=== PATIENT | female | born 1965 | race Two or more races ===

== ENCOUNTER 2025-09-17 09:33 | Outpatient (AMB) | payer MEDICARE, MEDICAID, SELFPAY ==
--- NOTE | 2025-09-17 10:04 | MHC.OFFVIS ---
Vital Signs 09/17/25 10:17 Height 5 ft 4 in Weight 168 lb BMI 28.8 BP 132/70 Blood Pressure Location Rt brachial Position Sitting Pulse 72 Pulse Source Pulse Oximeter Pulse Oximetry (%) 98 Oxygen Delivery Method Room Air Intake Visit Reasons: CHRONIC RT SIDED LOW BACK PAIN Intake Note: Pain today 05/26 Broiler Supervisor Required: Yes Broiler Supervisor Language: Chief Hydroelectric Station Operator Name: Breann # [id number] Accompanied by: Self / Same As Patient Allergies aspirin Allergy (Unknown, Verified 09/17/25 10:31) Rash HPI Comments Details: The patient is a 59 year old Setswana speaking female presenting with chronic back pain. The patient has had low back pain for approximately four years, which radiates to the right lower extremity with intermittent tingling and numbness. The patient also reports chronic neck pain without radiculopathy, as well as bilateral hip pain. For symptoms, the patient takes Tylenol, applies diclofenac gel topically, and takes Flexeril at night. Past treatments include injections for back pain received at a pain clinic in [place]. The patient has not had back surgery. Past medical history is significant for a cervical herniated disc, cervical degenerative joint disease, and lumbar joint disease. The patient also sees a Psychiatrist for anxiety and depression. The patient was referred from physical therapy and recently had an evaluation but has not started treatment. The patient also reports undergoing recent x-rays due to sciatica pain. - Onset: The patient has had back pain for approximately four years. - Location: The patient reports chronic low back pain with radiation to the right lower extremity, as well as chronic neck pain and bilateral hip pain. - Quality: The pain is associated with intermittent tingling and numbness in the hands and legs. - Exacerbating factors: Bending backward is more painful, and a little increase in pain was noted with this movement. - Analgesia: The patient is currently taking Tylenol, using diclofenac gel topically, and taking Flexeril at night. - Affect: The patient sees a psychiatrist for anxiety and depression. - Activities of Daily living: The patient is requesting a letter for housing assistance, indicating a potential impact on living situation. [facility] Medical History Osteoarthritis of left knee Tension headache Allergic rhinitis Hypothyroidism Spondylosis of cervical region without myelopathy or radiculopathy Chronic right-sided low back pain with right-sided sciatica Gastritis, Helicobacter pylori Depression Anxiety Asthma exacerbation, mild Chronic GERD without esophagitis Surgical History H/O tubal ligation History of breast biopsy Social History Alcohol intake: unknown Patient Tobacco Use Status: Never used Tobacco Review of Systems Const Details: - Musculoskeletal: Reports chronic low back pain for approximately 4 years, chronic neck pain, and bilateral hip pain. - Neurological: Reports pain radiating to the right lower extremity, and numbness and tingling in the hands and legs all the time. All systems reviewed & are unremarkable except as noted in HPI and below Physical Exam Vital Signs: Last Vital Signs Pulse 72 09/17/25 10:17 BP 132/70 09/17/25 10:17 Pulse Ox 98 09/17/25 10:17 Oxygen Delivery Method Room Air 09/17/25 10:17 BMI result Body Mass Index 28.8 General: Appears afebrile. Alert and oriented. Mood and affect appropriate. Follows and participates in conversation appropriately. Respiratory effort is unlabored. No cough. Able to transition from sit to stand unassisted. No assistive devices. Ambulates with normal heel strike and toe off on the left, reports back and right leg increase with toe/heel standing. General: Yes no CVA tenderness Back/Spine/Pelvis Other: Limited lumbar ROM due to pain. Lumbar flexion reproduces mild pain, lumbar extension reproduces moderate to severe pain. Demonstrates 5/5 strength of quadriceps bilaterally as well as flexion/dorsiflexion of bilateral feet against resistance. 2+ pedal pulses bilaterally. Straight leg rise with dorsiflexion positive on the right. +2 patellar and +1 achilles reflexes bilaterally. Facet loading test positive bilaterally. Matti?s, Pelvic compression and Stinchfield tests are positive bilaterally. No groin pain with I/E hip rotations. Valsalva maneuver negative. Back: no CVA tenderness Cervical Spine: cervical ROM normal, cervical muscular tenderness, pain with cervical ROM, Cervical spine scars present and No Cervical spine tenderness Thoracic/Lumbar Spine: thoracic and lumbar spine normal to inspection, No Thoracic/lumbar spine scar(s), Lasegue's sign positive (L4-L5 distribution) on the right and localized, pain with thoraco-lumbar ROM, paraspinal muscle tenderness, thoraco-lumbar ROM limited, No thoracic spinal tenderness and lumbar spinal tenderness (L4-S1) Pelvis: buttock tenderness on the right Sacroiliac joints: bilaterally tender to palpation Extrem General: Yes capillary refill normal, Yes no clubbing, cyanosis or edema and Yes no calf tenderness Results Reviewed Results Reviewed: Assessment & Plan Assessment & Plan (1) Lumbar radiculopathy: Code(s): M54.16 - Radiculopathy, lumbar region Category: Medical (2) Lumbar degenerative disc disease: Code(s): M51.369 - Other intervertebral disc degeneration, lumbar region without mention of lumbar back pain or lower extremity pain Category: Medical (3) Lumbosacral spondylosis: Code(s): M47.817 - Spondylosis without myelopathy or radiculopathy, lumbosacral region Category: Medical (4) Cervical spondylosis: Code(s): M47.812 - Spondylosis without myelopathy or radiculopathy, cervical region Category: Medical Plan An MRI will be ordered to evaluate the right-sided leg pain to assess neural integrity and compression, especially at L4-L5 level. The patient is advised to continue with physical therapy as referred. For pain management, the patient was prescribed a 5-day Medrol pack and lidocaine patches to be used up to 12 hours a day on the back. Side effects and precautions were discussed with patient. All questions and concerns have been answered and patient agreed with the treatment plan. Follow up for MRI results and sooner as needed. Patient was informed and verbally consented to the use of an ambient scribe for clinic note documentation during this visit. Orders: Orders MR lumbar spine wo con 09/17/25 M47.817 - Spondylosis without myelopathy or radiculopathy, lumbosacral region, M51.369 - Other intervertebral disc degeneration, lumbar region without mention of lumbar back pain or lower extremity pain, M54.16 - Radiculopathy, lumbar region Medications: New methylprednisolone (Medrol (Yaw)) PO PER PKG DIR 21 ea 0RF pain M47.817 - Spondylosis without myelopathy or radiculopathy, lumbosacral region, M51.369 - Other intervertebral disc degeneration, lumbar region without mention of lumbar back pain or lower extremity pain, M54.16 - Radiculopathy, lumbar region lidocaine 5% leave on most painful area for up to 12 hrs topical 30 ea 0RF pain 30 days M47.817 - Spondylosis without myelopathy or radiculopathy, lumbosacral region, M51.369 - Other intervertebral disc degeneration, lumbar region without mention of lumbar back pain or lower extremity pain, M54.16 - Radiculopathy, lumbar region Coding Level of Care Code New Pt Level 4 (49781) Diagnoses Lumbar radiculopathy M54.16 Lumbar degenerative disc disease M51.369 Lumbosacral spondylosis M47.817 Cervical spondylosis M47.812
[2025-09-17 10:17] VITALS: BP 132/70; PULSE 72; O2SAT 98; BMI 28.8
--- OUTSIDE RECORDS SUMMARY | 2025-09-17 10:21 | XMS_ITS | Encounter Summary ---
Author Organization [facility] Address [address] [place] [address] Care Team Providers Care Rectifier Operator Name Role Phone Yosvany Brennan MD Primary Care Provider Encounter Details Date Type Department Care Team ([facility] Contact Info) Description 08/20/2025 Results Follow-Up Adult Medicine [address] [phone] Yosvany Brennan MD [address] [place] [address] Social History Tobacco Use Types Packs/Day Years Used Date Smoking Tobacco: Never Smokeless Tobacco: Never Alcohol Use Standard Drinks/Week Comments Never 0 (1 standard drink = 0.6 oz pur e alcohol) Comments Unknown Sex and Gender Information Value Date Recorded Sex Assigned at Not on file Legal Sex Female 8:43 PM EST Gender Identity Not on file Sexual Orientation Not on file documented as of this encounter Plan of Treatment Upcoming Encounters Date Type Department Care Team (Late Contact Info) Description 10/16/2025 10:00 AM EST Consult Adult Medicine [address] [phone] Yosvany Brennan MD [address] [place] [address] 11/21/2025 9:00 AM EST Office Visit Adult Medicine [address] [place], [place] [phone] Yosvany Brennan MD [address] [place] [address] documented as of this encounter Visit Diagnoses Not on filedocumented in this encounter Care Teams Rectifier Operator Relationship Specialty Start Date End Date Yosvany Brennan MD [address] [place] [address] PCP - General Internal Medicine 08/19/25 documented as of this encounter
--- OUTSIDE RECORDS SUMMARY | 2025-09-17 10:21 | XMS_ITS | Encounter Summary ---
Author Organization [facility] Address [address] [place] [address] Care Team Providers Care Labour Market Economist Name Role Phone Yosvany Brennan MD Primary Care Provider [phone] Encounter Details Date Type Department Care Team (Late st Contact Info) Description 09/16/2025 Telephone Adult Medicine [facility] [address] [place], [place] [phone] Yosvany Brennan MD [address] [place], [place] Social History Tobacco Use Types Packs/Day Years [...] on file documented as of this encounter Progress Notes * Daniel Harrison MA - 09/17/2025 10:09 AM EST Patient is requesting letter for housing stating she needs an apartment for disable elder. Letter needs to include medical conditions and medication list. Please advise. * Yoli Avitia - 09/16/2025 10:24 AM EST Pt needs letter for housing stating what her medical conditions are and what medications she is taking. Letter needs to state she needs and apartment for disabled elder. documented in this encounter Plan of Treatment Upcoming Encounters Date Type Department Care Team (Late st Contact Info) Description 10/16/2025 10:00 AM EST Consult Adult Medicine [address] [phone] Yosvany Brennan MD [address] [place] [address] 11/21/2025 9:00 AM EST Office Visit Adult Medicine [address] [phone] Yosvany Brennan MD [address] [place] [address] documented as of this encounter Goals Goal Patient Goal Type Associated Problems Recent Progress Patient-Stated? Author STG's 6 visits General Yes Jerad Alston, PT Note: Pt will report a 1-2 point decrease in neck pain during light household IADL's. Pt will demonstrate a 5 degree or better improvement in cerv ext and cerv lat flexion. Pt will demonstrate DNFET of 20 seconds or better. Pt is Independent and compliant with initial HEP. LTG's 12 visits General Yes Jerad Alston, PT Note: Pt will report a 2 point or better decrease in neck pain during light household IADL's. Pt will demonstrate a 10 degree or better improvement in cerv ext and cerv lat flexion. Pt will demonstrate DNFET of 28 seconds or better. Pt will be Independent and compliant with final HEP. documented as of this encounter Visit Diagnoses Not on filedocumented in this encounter Care Teams Labour Market Economist Relationship Specialty Start Date End Date Yosvany Brennan MD [address] [place] [address] PCP - General Internal Medicine 08/19/25 documented as of this encounter
--- OUTSIDE RECORDS SUMMARY | 2025-09-17 10:21 | XMS_ITS | Clinical Summary ---
Author Organization [facility] [address] [place] [address] [place] [address] Phone Care Team Providers Care Monotype Mechanic Name Role Phone Yosvany Brennan MD Primary Care Provider [phone] Allergies Active Allergy Reactions Criticality Noted Date Comments Aspirin Rash 01/10/2024 Medications cholecalcifero l (VITAMIN D-3) 50 mcg (2,000 unit) tablet Take 1 Tablet by mouth daily. 01/11/20 24 Active hydrOXYzine HCL (ATARAX) 25 mg tablet Take 1 Tablet by mouth at bedtime as needed for Anxiety. Active meclizine (ANTIVERT) 25 mg tablet Take 1 Tablet by mouth every 8 hours as needed (dizziness/ve rtigo). Medication may cause drowsiness, do not drive/operate machinery while taking 03/27/20 24 Active phenylephrine (SUDAFED PE) 10 mg tablet Take 1 Tablet by mouth every 4 hours as needed. Active fluticasone propionate (FLONASE) 50 mcg/actuation nasal spray Administer 2 sprays into each nostril 1 (one) time each day. 48 mL 11/01/19 25 Active sertraline (ZOLOFT) 50 mg tablet Take 1 tablet (50 mg total) by mouth 1 (one) time each day. 30 tablet 03/12/20 25 Active cetirizine (ZyrTEC) 10 mg tablet Take 1 tablet (10 mg total) by mouth at bedtime. 30 tablet 04/01/20 25 Active omeprazole OTC (PriLOSEC OTC) 20 mg EC tablet Take 1 tablet (20 mg total) by mouth 2 (two) times a day. Do not crush, chew, or split. 180 tablet 1 08/20/20 25 Active levothyroxine (SYNTHROID, LEVOTHROID) 25 mcg tablet Take 1 tablet (25 mcg total) by mouth 1 (one) time each day before breakfast. 90 each 1 08/20/20 25 Active diclofenac (VOLTAREN) 1 % topical gel Apply 2 g topically 2 (two) times a day if needed (Pain). 100 g 3 08/20/20 25 Active acetaminophen (TYLENOL 8 HOUR) 650 mg 8 hr tablet Take 1 tablet (650 mg total) by mouth every 8 (eight) hours if needed for mild pain. Take 1 Tablet by mouth 3 times daily as needed for Pain. 90 tablet 3 08/20/20 25 Active cyclobenzaprin e (FLEXERIL) 5 mg tablet Take 1 tablet (5 mg total) by mouth at bedtime as needed for muscle spasms. 90 tablet 1 08/20/20 25 Active albuterol HFA (PROAIR HFA ; PROVENTIL HFA ; VENTOLIN HFA) 90 mcg/actuation inhaler Inhale 2 puffs by mouth every 4 (four) hours if needed for wheezing. 18 g 1 08/20/20 25 025 Active acetaminophen (TYLENOL 8 HOUR) 650 mg 8 hr tablet Take 1 Tablet by mouth 3 times daily as needed for Pain. 01/10/20 025 Discontinued(Re order) albuterol HFA (PROAIR HFA ; PROVENTIL HFA ; VENTOLIN HFA) 90 mcg/actuation inhaler Inhale 2 Puffs into the lungs every 4 hours as needed for Cough or Wheezing. 03/08/20 24 025 Discontinued bisacodyL (DULCOLAX) 5 mg EC tablet Take 2 tablets by mouth right before your first dose of liquid prep. 03/28/20 24 025 Discontinued gabapentin (NEURONTIN) 100 mg capsule Take 1 Capsule by mouth at bedtime. 01/10/20 025 Discontinued lansoprazole (PREVACID) [address] capsule Take 1 Capsule by mouth 2 times daily. 03/27/20 24 025 Discontinued polyethylene glycol (GoLYTELY) 236-22.74-6.74 -5.86 gram solution Take 240 mL by mouth once for 1 dose. Take 4L by mouth once for one dose. May substitue any PEG. Starting at 6PM the night before your procedure drink 1 8oz glasses at your own pace until rectals run clear. 03/28/20 24 025 Discontinued ibuprofen (ADVIL,MOTRIN) 600 mg tablet 025 Discontinued albuterol HFA (PROAIR HFA ; PROVENTIL HFA ; VENTOLIN HFA) 90 mcg/actuation inhaler Inhale 2 puffs by mouth every 4 (four) hours if needed for wheezing. 18 g 07/23/20 25 025 Discontinued(Re order) Active Problems Problem Noted Date Diagnosed Date Acquired hypothyroidism 08/20/2025 Mild intermittent asthma without complication Benign paroxysmal positional vertigo 03/27/2024 Seasonal allergic rhinitis due to pollen 024 Anxiety and depression 01/10/2024 Gastroesophageal reflux disease without esophagi tis 01/10/2024 Osteoarthritis of left knee 01/10/2024 Spondylosis of cervical michael on without myelopathy or radiculopathy 01/10/2024 Spondylosis of lumbar region without myelopathy or radiculopathy 01/10/2024 Tension headache 01/10/2024 Encounters Date Type Department Care Team Description 09/16/2025 Telephone Adult Medicine [address] [phone] Yosvany Brennan MD 09/04/2025 9:00 AM EST Evaluation Outpatient Rehabilitation [address] [phone] Jerad Alston PT Spondylosis of cervical region without myelopathy or radiculopathy (Primary Dx); Chronic right-sided low back pain with right-sided sciatica 08/20/2025 3:11 PM EST - 08/20/2025 11:59 PM EST Hospital Encounter XRAY - [address] [phone] Chronic right-sided low back pain with right-sided sciatica Discharge Disposition: Home or Self Care 08/20/2025 3:10 PM EST - 08/20/2025 11:59 PM EST Hospital Encounter [address] [phone] Spondylosis of cervical region without myelopathy or radiculopathy Discharge Disposition: Home or Self Care 08/20/2025 2:00 PM EST Office Visit [address] [phone] Yosvany Brennan MD Gastritis, Helicobacter pylori (Primary Dx); Gastroesophageal reflux disease without esophagitis; Chronic right-sided low back pain with right-sided sciatica; Spondylosis of cervical region without myelopathy or radiculopathy; Acquired hypothyroidism; Mild intermittent asthma without complication; Anxiety and depression; Encounter for screening mammogram for malignant neoplasm of breast 08/20/2025 Results Follow-Up [address] [phone] Yosvany Brennan MD 08/20/[address] [phone] Yosvany Brennan MD 07/23/2025 1:20 PM EDT - 07/23/2025 1:46 PM EDT Emergency [facility] Emergency [address] [place] [address] Acute cough (Primary Dx); Acute bronchitis, unspecified organism Discharge Disposition: Home or Self Care from Last 3 Months Immunizations Immunization Administration Dates Next Due Tdap Tetanus diptheria acell ular pertussis (Boostrix; Adacel) 7yo and older 04/05/2024 Surgical History Surgery Date Site/Laterality Comments OTHER SURGICAL HISTORY PROCEDURE: HISTORY OTHER; COMMENT: Tubectomy OTHER SURGICAL HISTORY PROCEDURE: HISTORY OTHER; COMMENT: breast biopsy Medical History Medical History Date Comments Anxiety and depression DX:Anxiet y and depression 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 DX:Degenerative joint diseas e (DJD) of lumbar spine DJD (degenerative joint dise ase) of cervical spine DX:DJD (degenerative joint d isease) of cervical spine GERD (gastroesophageal reflux disease) DX:GERD (gastroesophageal reflux disease) Mild intermittent asthma, uncomplicated DX:Mild intermittent asthma, uncomplicated Family History Medical History Relation Name Comments Other cancer Aunt Diabetes Brother Breast cancer Mother Diabetes Mother Lung cancer Mother Diabetes Sister Coronary artery disease Neg Hx Relation Name Status Comments Aunt Alive Brother Mother Sister Social History Tobacco Use Types Packs/Day Years Used Date Smoking Tobacco: Never Smokeless Tobacco: Never Tobacco Cessation:Counseling Given: Not Answered Alcohol Use Standard Drinks/Week Comments Never 0 (1 standard drink = 0.6 oz pur e alcohol) Comments Unknown Sex and Gender Information Value Date Recorded Sex Assigned at Not on file Legal Sex Female 8:43 PM EST Gender Identity Not on file Sexual Orientation Not on file Obstetrics History Last Filed Vital Signs Vital Sign Reading Time Taken Comments Blood Pressure 133/74 08/20/2025 2:12 PM EST Pulse 76 08/20/2025 2:12 PM EST Temperature 36.7 C (98 F) 08/20/2025 2:12 PM EST Respiratory Rate 16 08/20/2025 2:12 PM EST Oxygen Saturation 97% 07/23/2025 12:46 PM EDT Inhaled Oxygen Concentration - - Weight 73 kg (161 lb) 08/20/2025 2:12 PM EST Height 157.5 cm (5' 2 ) 08/20/2025 2:12 PM EST Body Mass Index 29.45 08/20/2025 2:12 PM EST Plan of Treatment Upcoming Encounters Date Type Department Care Team (Late st Contact Info) Description 10/16/2025 10:00 AM EST Consult Adult Medicine [address] [phone] Yosvany Brennan MD [address] [place] [address] 11/21/2025 9:00 AM EST Office Visit Adult Medicine [address] [phone] Yosvany Brennan MD [address] [place] [address] Health Maintenance Due Date Last Done Comments Pneumococcal Vaccine: 50+ Years (1 of 2 - PCV) 1982 Cervical Cancer Screening: P ap Smear 1984 RSV Immunization Adult Patients (1 - Risk 50-74 years 1-dose series) 2013 HIV Screening 11/11/2023 Hepatitis C Screening 11/11/2023 Social Influencers of Health Screening 11/11/2023 Zoster Vaccines (2 of 2) 03/16/2024 01/20/2024 Depression Screening 10/17/2024 04/05/2024 Influenza Vaccine (#1) 2025 Breast Cancer Screening 03/07/2026 03/07/20, 03/07/2024 Cholesterol Screening (Lipid Panel) 12/31/2028 01/01/2024 Colorectal Cancer Screening: Colonoscopy 04/11/2029 04/11/2024 DTaP,Tdap,and Td Vaccines (2 - Td or Tdap) 04/05/2034 04/05/2024 COVID-19 Vaccine Completed 08/29/2025 HIB Vaccines Aged Out No longer eligi ble based on patient's age to complete this topic HPV Vaccines Aged Out No longer eligi ble based on patient's age to complete this topic Hepatitis A Vaccines Aged Out No long er eligible based on patient's age to complete this topic Hepatitis B Vaccines Aged Out No long er eligible based on patient's age to complete this topic IPV Vaccines Aged Out No longer eligi ble based on patient's age to complete this topic MMR Vaccines Aged Out No longer eligi ble based on patient's age to complete this topic Meningococcal ACWY Vaccine Aged Out N o longer eligible based on patient's age to complete this topic Meningococcal B Vaccine Aged Out No l onger eligible based on patient's age to complete this topic RSV Immunization Patients Under 20 months Aged Out No longer eligible b ased on patient's age to complete this topic Varicella Vaccines Aged Out No longer eligible based on patient's age to complete this topic Goals Goal Patient Goal Type Associated Problems [...] be Independent and compliant with final HEP. Procedures Procedure Name Priority Date/Time Associated Diagnosis Comments XR LUMBAR SPINE 4+ VIEWS Routine 08/20/2025 3:33 PM EST Chronic right-sided low back pain with right-sided sciatica XR CERVICAL SPINE 4-5 VIEWS Routine 08/20/2025 3:32 PM EST Spondylosis of cervical region without myelopathy or radiculopathy ECG ANNOTATED 07/24/2025 XR CHEST 2 VIEWS STAT 07/23/2025 1:10 PM EDT ECG 12-LEAD STAT 07/23/2025 12:43 PM EDT HM COLONOSCOPY Routine 04/11/2024 HM DEPRESSION SCREENING Routine 04/05/2024 VIRIDIANA SCREENING DIGITAL Routine 03/07/2024 4:22 PM EDT Encounter for screening mammogram for malignant neoplasm of breast LIPID PANEL Routine 01/01/2024 from Last 3 Months or Most Recently Relevant to Health Maintenance Results * XR Lumbar Spine 4+ Views (08/20/2025 3:33 PM EST) Anatomical Region Laterality Modality Spine, L-spine Radiographic Josephine ging 08/20/2025 6:06 PM EST Impressions 08/20/2025 6:10 PM EST Very mild degenerative changes. -------- FINAL REPORT -------- Dictated By: Anay Terrell Dictated Date: 08/20/2025 18:06 ET Assigned Physician: Anay Terrell Reviewed and Electronically Signed By: Anay Terrell Signed Date: 08/20/2025 18:10 ET Workstation ID: [id number] Transcribed By: Self Edit Transcribed Date: 08/20/2025 18:06 ET Narrative 08/20/2025 6:10 PM EST EXAM: Lumbar spine x-ray HISTORY: Chronic right low back pain with right sciatica. COMPARISON: None, correlation with CT abdomen and pelvis 03/12/2024 FINDINGS: 4 views of the lumbar spine were performed. 5 lumbar type vertebral bodies. Vertebral body heights are maintained. Intervertebral disc spaces are maintained. Minimal endplate spurring at a few levels. No definite spondylolysis or spondylolisthesis. Very mild facet arthropathy in the lower spine. Procedure Note Anay Terrell MD - 08/20/2025 EXAM: Lumbar spine x-ray HISTORY: Chronic right low back pain with right sciatica. COMPARISON: None, correlation with CT abdomen and pelvis 03/12/2024 FINDINGS: 4 views of the lumbar spine were performed. 5 lumbar type vertebral bodies. Vertebral body heights are maintained.Intervertebral disc spaces are maintained. Minimal endplate spurring at afew levels. No definite spondylolysis or spondylolisthesis. Very mildfacet arthropathy in the lower spine. IMPRESSION: Very mild degenerative changes. -------- FINAL REPORT -------- Dictated By: Anay Terrell Dictated Date: 08/20/2025 18:06 ET Assigned Physician: Anay Terrell Reviewed and Electronically Signed By: Anay Terrell Signed Date: 08/20/2025 18:10 ET Workstation ID: [id number] Transcribed By: Self Edit Transcribed Date: 08/20/2025 18:06 ET us Yosvany Brennan MD IMG XR PROCEDURES Final Res ult * XR Cervical Spine 4-5 Views (08/20/2025 3:32 PM EST) Anatomical Region Laterality Modality Spine, C-spine Radiographic Josephine ging 08/20/2025 6:01 PM EST Impressions 08/20/2025 6:06 PM EST Multilevel degenerative changes with bilateral neural foraminal encroachment. -------- FINAL REPORT -------- Dictated By: Anay Terrell Dictated Date: 08/20/2025 18:01 ET Assigned Physician: Anay Terrell Reviewed and Electronically Signed By: Anay Terrell Signed Date: 08/20/2025 18:06 ET Workstation ID: [id number] Transcribed By: Self Edit Transcribed Date: 08/20/2025 18:01 ET Narrative 08/20/2025 6:06 PM EST EXAM: Cervical spine x-ray HISTORY: Neck pain. No known trauma. COMPARISON: None FINDINGS: 4 views performed. Cervical spine is visualized through C7 on the lateral projection. No compression deformities. Moderate disc space narrowing at C5-6 and C6-7 with very mild anterior endplate spurring. Multilevel uncovertebral spurring. Facet arthropathy in the left upper spine. On the right, moderate neural foraminal encroachment at C5-6 and C6-7. On the left, moderate neural foraminal encroachment at C3-4 and C4-5 and mild at C5-6 and C6-7. Atlantoaxial distance is within normal limits. No abnormal thickening of the prevertebral soft tissues. Procedure Note Anay Terrell MD - 08/20/2025 EXAM: Cervical spine x-ray HISTORY: Neck pain. No known trauma. COMPARISON: None FINDINGS: 4 views performed. Cervical spine is visualized through C7 on the lateral projection. Nocompression deformities. Moderate disc space narrowing at C5-6 and C6-7 with very mild anteriorendplate spurring. Multilevel uncovertebral spurring. Facet arthropathy inthe left upper spine. On the right, moderate neural foraminal encroachment at C5-6 and C6-7. Onthe left, moderate neural foraminal encroachment at C3-4 and C4-5 and mildat C5-6 and C6- 7. Atlantoaxial distance is within normal limits. No abnormal thickening ofthe prevertebral soft tissues. IMPRESSION: Multilevel degenerative changes with bilateral neural foraminalencroachment. -------- FINAL REPORT -------- Dictated By: Anay Terrell Dictated Date: 08/20/2025 18:01 ET Assigned Physician: Anay Terrell Reviewed and Electronically Signed By: Anay Terrell Signed Date: 08/20/2025 18:06 ET Workstation ID: [id number] Transcribed By: Self Edit Transcribed Date: 08/20/2025 18:01 ET Yosvany Brennan MD IMG XR PROCEDURES Final Res ult * ECG-Annotated (07/24/2025) Provider Onbase ECG ORDERABLES Final Result * XR Chest 2 Views (07/23/2025 1:10 PM EDT) Anatomical Region Laterality Modality Body Radiographic Josephine ging 07/23/2025 1:34 PM EDT Impressions 07/23/2025 1:34 PM EDT Normal chest radiographs. -------- FINAL REPORT -------- Dictated By: Dani Del Cid Dictated Date: 07/23/2025 13:34 ET Assigned Physician: Dani Del Cid Reviewed and Electronically Signed By: Dani Del Cid Signed Date: 07/23/2025 13:34 ET Workstation ID: [id number] Transcribed By: Self Edit Transcribed Date: 07/23/2025 13:34 ET Narrative 07/23/2025 1:34 PM EDT PROCEDURE: PA and lateral radiographs of the chest. HISTORY: SOB, abn CXR, heart failure suspected. COMPARISON: 03/05/2024. FINDINGS: The heart, mediastinum, lungs, pleural spaces, and bony thorax are normal. Procedure Note Dani Del Cid MD - 07/23/2025 PROCEDURE: PA and lateral radiographs of the chest. HISTORY: SOB, abn CXR, heart failure suspected. COMPARISON: 03/05/2024. FINDINGS: The heart, mediastinum, lungs, pleural spaces, and bony thorax arenormal. IMPRESSION: Normal chest radiographs. -------- FINAL REPORT -------- Dictated By: Dani Del Cid Dictated Date: 07/23/2025 13:34 ET Assigned Physician: Dani Del Cid Reviewed and Electronically Signed By: Dani Del Cid Signed Date: 07/23/2025 13:34 ET Workstation ID: [id number] Transcribed By: Self Edit Transcribed Date: 07/23/2025 13:34 ET Luis Pagan PA IMG XR PROCEDURES Final R esult * ECG 12 lead (07/23/2025 12:43 PM EDT) Pathologist [facility] Ventricular Rate ECG 77 BPM GEMUSE Atrial Rate 77 BPM GEMUSE P-R Interval 156 ms GEMUSE QRS Duration 82 ms GEMUSE Q-T Interval 386 ms GEMUSE QTc 436 ms GEMUSE P Wave [place] 43 degrees GEMUSE R [place] 52 degrees GEMUSE T [place] 46 degrees GEMUSE ECG Interpretation Normal sinus rhythm Normal ECG When compared with ECG of 21-FEB-2024 10:28, No significant change was found Confirmed by MD Jeffry, Grundy ([id number]) on 07/24/2025 11:03:25 AM GEMUSE 07/23/2025 12:4 3 PM EDT 07/24/2025 11:03 AM EDT Olga Mathews DO ECG ORDERABLES Final Result GEMUSE * Colonoscopy (04/11/2024) Pathologist [facility] Colonoscopy No interpreta tion,abstr acted Anatomical Region Laterality Modality Other Historical Provider HEALTH MAINTENANCE Final Result * Depression Screening (04/05/2024) Pathologist [facility] Depression Screening Abstracted Historical Provider HEALTH MAINTENANCE Final Result * VIRIDIANA SCREENING DIGITAL (03/07/2024 4:22 PM EDT) Anatomical Region Laterality Modality Mammography 03/07/2024 12:5 6 PM EDT Narrative 03/07/2024 4:22 PM [facility] Diagnostic Imaging Department [address] [place] [id number] Patient: RAMAKRISHNA FAYE./Age/Sex: 1965 - 58 - F Unit#: [id number] Location/Status: SPDIMAM/REG CLI Mnemonic/Ordering Site: [facility] Ordering Physician: YOSVANY BRENNAN MD [facility] Screening Digital - 03/07/24 - 1324 Report Status:Signed EXAM: [facility] Screening Digital EXAM DATE AND TIME: 03/07/2024 1:25 PM HISTORY: Screening. Baseline exam. COMPARISON: No comparison imaging. TECHNIQUE: Bilateral digital breast tomosynthesis was performed in the CC and MLO projections. Computer aided detection with Cuiker 3D 3.1 was employed. TISSUE DENSITY: b. There are scattered areas of fibroglandular density. FINDINGS: A 16 mm round mass with coarse, peripheral calcifications, probably representing a chronic calcified cyst, is seen in the anterior 2:00 position of the left breast. The posterior margin of the lesion is obscured on the tomosynthesis views, however, and there are microcalcifications in this area which appear to be separate from the mass. Spot compression magnification views are recommended for further assessment, with targeted ultrasound to be considered if appropriate based on the additional views. No dominant mass or asymmetry is seen in the right breast. Few coarse, benign rim calcifications are noted. No architectural distortion is seen. Vascular calcification is present. The skin is unremarkable. IMPRESSION: 1. Microcalcifications in the left breast, adjacent to a partially calcified mass, for which additional views are recommended. The patient will be called back. 2. No mammographic evidence of malignancy is seen in the right breast. BI-RADS: Category 0: Incomplete - Need Additional Imaging Evaluation RECOMMENDATION(S): 1: Special mammographic view(s) needed LEFT Dictating Physician: LOLY JARRELL MD Electronically Signed by: LOLY JARRELL MD Dic Date/Time: 03/07/24 1619 Sign date/Time: 03/07/24 1622 Procedure Note Loly Jarrell MD - 06/04/2024 [facility] Diagnostic Imaging Department [address] [place] [address] Patient: RAMAKRISHNA FAYE./Age/Sex: 1965 - 58 - F Unit#: [id number] Location/Status: [facility] Mnemonic/Ordering Site: [facility] Ordering Physician: YOSVANY BRENNAN MD [facility] Screening Digital - 03/07/24 - 1324 Report Status:Signed EXAM: [facility] Screening Digital EXAM DATE AND TIME: 03/07/2024 1:25 PM HISTORY: Screening. Baseline exam. COMPARISON: No comparison imaging. TECHNIQUE: Bilateral digital breast tomosynthesis was performed in the CCand MLO projections. Computer aided detection with Cuiker 3D 3.1was employed. TISSUE DENSITY: b. There are scattered areas of fibroglandular density. FINDINGS: A 16 mm round mass with coarse, peripheral calcifications, probably representing a chronic calcified cyst, is seen in the anterior 2:00position of the left breast. The posterior margin of the lesion is obscured on the tomosynthesis views, however, and there are microcalcifications in thisarea which appear to be separate from the mass. Spot compression magnificationviews are recommended for further assessment, with targeted ultrasound to be considered if appropriate based on the additional views. No dominant mass or asymmetry is seen in the right breast. Few coarse,benign rim calcifications are noted. No architectural distortion is seen.Vascular calcification is present. The skin is unremarkable. IMPRESSION: 1. Microcalcifications in the left breast, adjacent to a partiallycalcified mass, for which additional views are recommended. The patient will becalled back. 2. No mammographic evidence of malignancy is seen in the right breast. BI-RADS: Category 0: Incomplete - Need Additional Imaging Evaluation RECOMMENDATION(S): 1: Special mammographic view(s) needed LEFT Dictating Physician: LOLY JARRELL MD Electronically Signed by: LOLY JARRELL MD Dic Date/Time: 03/07/24 1619 Sign date/Time: 03/07/24 1622 Yosvany Brennan MD IMG BI PROCEDURES Final Res ult * (ABNORMAL) Lipid panel (01/01/2024) LDL/HDL Ratio 2 0 - 4 Triglycerides 97 0 - 150 mg/dL Cholesterol 233(A) 0 - 200 mg/dL HDL 121 >=40 mg/dL LDL Cholesterol 93(A) 0 - 10 mg/dL Blood Venous blood specimen / Unknown Historical Provider LAB BLOOD ORDERABLES Brinda l Result from Last 3 Months or Most Recently Relevant to Health Maintenance Insurance [employer] Care Teams Monotype Mechanic Relationship Specialty Start Date End Date Yosvany Brennan MD [address] [place] [address] [phone] PCP - General Internal Medicine 08/19/25
== END 2025-09-17 10:41 | disposition home or self-care (01) ==
LOC: HO.PMC 09:33
PROVIDERS: PCP Internal Medicine; Visit Provider Nurse Practitioner Family
DX: M54.16 Radiculopathy, lumbar region (principal); M51.369 Other intervertebral disc degeneration, lumbar region without mention of lumbar back pain or lower extremity pain; M47.817 Spondylosis without myelopathy or radiculopathy, lumbosacral region; M47.812 Spondylosis without myelopathy or radiculopathy, cervical region
CPT/HCPCS: 99204

== ENCOUNTER → 2025-09-17 09:33 | Outpatient (BNVA) | payer MEDICARE, MEDICAID, SELFPAY | PROVIDERS: PCP Internal Medicine; Visit Provider Nurse Practitioner Family | DX: M54.16 Radiculopathy, lumbar region (principal); M51.369 Other intervertebral disc degeneration, lumbar region without mention of lumbar back pain or lower extremity pain; M47.817 Spondylosis without myelopathy or radiculopathy, lumbosacral region; M47.812 Spondylosis without myelopathy or radiculopathy, cervical region | CPT/HCPCS: 99202 ==